=== PATIENT | female | born 1995 | race American Indian/Alaskan Native ===

== ENCOUNTER 2019-10-18 08:16 | Inpatient (IN) | payer OTHER ==
[2019-10-18] MEDS ORDERED: ONDANSETRON 4 MG/2 ML INJ IV PRN (09:33)
[2019-10-18] MEDS ORDERED: TERBUTALINE 1 MG/1 ML INJ SUB-Q PRN (09:33)
[2019-10-18] MEDS ORDERED: ePHEDrine SULFATE 50 MG/1 ML INJ IV PRN ×2 (09:33→14:29)
[2019-10-18] MEDS ORDERED: LIDOCAINE (2%) 20 MG/1 ML VIAL 20 ML MDV INFILTRATI ONE (09:33)
[2019-10-18] MEDS ORDERED: OXYTOCIN DRIP 30 UNITS/500 ML BAG IV SCH ×2 (10:00)
[2019-10-18] MEDS ORDERED: AMPICILLIN/NS 2 GM/100 ML 2 GM/100 ML BAG IV ONE (10:00)
[2019-10-18 10:24] LABS: Hemoglobin 12.8 gm/dl (10.1-14.3); Mean Corpuscular HGB Conc 33 % (30-34); Mean Corpuscular Volume 85 fl (79-97); Platelet Count 311 K/mm3 (140-440); Red Cell Distribution Width 18.3 % (13.2-15.2)
[2019-10-18] MEDS: LACTATED RINGERS 1,000 ML IV SCH ×2 (10:29→19:50)
[2019-10-18] MEDS: fentaNYL 100 MCG/2 ML INJ IV PRN ×3 (12:34→18:04)
[2019-10-18] MEDS ORDERED: NALOXONE 2 MG/2 ML INJ IV PRN (14:29)
[2019-10-18] MEDS ORDERED: DEXMEDETOMIDINE 200 MCG/2 ML VIAL IV ONE (14:37)
--- NOTE | 2019-10-18 14:58 | History and Physical Report ---
History of Present Illness Date of examination: 10/18/19 (c/o contractions) History of present illness: EDC Confirmation: 10/23/2019 Gestational Age: 17 1/7 weeks Past History : 1 Term Births: 0 Premature Births: 0 Living Children: 0 Para: 0 Mult. Births: 0 Prev : 0 Aborta: 0 Elect. Ab: 0 Spont. Ab: 0 Ectopics: 0 Past Medical History: Reviewed history and no changes required: Negative Past Medical History Past Surgical History: Reviewed history and no changes required: negative Past Medical History Anesthesia Complications: negative Anemia: negative Autoimmune Disorder: negative Bleeding Disorder: negative Blood Transfusions: negative Breast Disease: negative Diabetes: negative Heart Disease: negative Hypertension: negative Hepatitis/Liver Disease: negative Kidney Disease/UTI: negative Neurologic/Epilepsy/Migraines: negative Phlebitis/Varicosities: negative Psychiatric: negative Pulmonary Disease/Asthma: negative Thyroid Disease: negative Hospitalizations: negative Surgery (Non-docket clerk): negative Abnormal PAP: positive, PAP from February 2019 BEKAH Exposure: negative Infertility: negative Uterine Anomaly: negative Uterine Surgery (not C/S): negative Other Gynecologic Problems: negative Infection History Hx of STD: none HIV Risk Eval: low risk Hepatitis B Risk Eval: low risk Personal hx. of genital herpes: no Partner hx. of genital herpes: no Rash, Viral, or Febrile illness since last LMP? no Varicella/Chicken Pox Status: Previous Disease TB Risk: no Genetic History Congenital Heart Defect: Mom: no Dad: no Janene Disease: Mom: no Dad: no Thalassemia Mom: no Dad: no Neural Tube Defect Mom: no Dad: no Down's Syndrome Mom: no Dad: no Lon-Sachs Mom: no Dad: no Sickle Cell Disease/Trait Mom: no Dad: no Hemophilia Mom: no Dad: no Muscular Dystrophy Mom: no Dad: no Cystic Fibrosis Mom: no Dad: no [place] Chorea Mom: no Dad: no Mental Retardation Mom: no Dad: no Fragile X Mom: no Dad: no Other Genetic/Chromosomal Disorder Mom: no Dad: no Child w/other defect Mom: no Dad: no Enviromental Exposures Xray Exposure: no Medication, drug, or alcohol use since LMP: no Chemical/Other Exposure: no Exposure to Cat Liter: no Hx of Parvovirus (Fifth Disease): no Occupational Exposure to Children: none Active Medications (reviewed today): None Current Allergies (reviewed today): NKDA Past History - Obstetrical History Expected Date of Delivery: 10/23/19 Actual Gestation: 39 Week(s) 2 Day(s) : 1 Para: 0 Hx # Term Pregnancies: 0 Number of Pregnancies: 0 Spontaneous Abortions: 0 Induced : 0 Number of Living Children: 0 Medications and Allergies Allergies Allergy/AdvReac Type Severity Reaction Status Date / Time No Known Allergies Allergy Unverified 10/18/19 08:25 Home Medications Medication Instructions Recorded Confirmed Last Taken Type No Known Home Medications [No 10/18/19 10/18/19 Unknown History Reported Home Medications] Active Meds: Active Medications Ephedrine Sulfate (Ephedrine Sulfate) 10 mg IV Q2M PRN PRN Reason: Hypotension Fentanyl (Sublimaze) 100 mcg IV Q2H PRN PRN Reason: Pain,Severe (7-10) LABOR PAIN Last Admin: 10/18/19 12:34 Dose: 100 mcg Documented by: Oxytocin/Sodium Chloride (Pitocin/Ns 20 Unit/1000ml Drip) 20 units in 1,000 mls @ 125 mls/hr IV DIRECT BELLA Oxytocin/Sodium Chloride (Pitocin/Ns 30 Unit/500ml) 30 units in 500 mls @ 1 mls/hr IV TITR BELLA; Protocol Last Admin: 10/18/19 11:59 Dose: 1 milliunits/min, 1 mls/hr Documented by: Lactated Ringer's (Lactated Ringers) 1,000 mls @ 125 mls/hr IV DIRECT BELLA Last Admin: 10/18/19 10:29 Dose: 125 mls/hr Documented by: Ampicillin Sodium (Ampicillin/Ns 1 Gm/50 Ml) 1 gm in 50 mls @ 100 mls/hr IV Q4HR BELLA; Protocol Fentanyl/Bupivacaine/Sodium Chlor (Fentanyl-Bupiv 2 Mcg/Ml-0.125%) 200 mcg in 100 mls @ 12 mls/hr EPIDURAL TITR BELLA; Protocol Naloxone HCl (Naloxone) 0.2 mg IV Q5M PRN PRN Reason: Respiratory sedation Ondansetron HCl (Zofran) 4 mg IV Q8H PRN PRN Reason: Nausea And Vomiting Terbutaline Sulfate (Brethine) 0.25 mg SUB-Q ONCE PRN PRN Reason: Hyperstimulation/Hypertonicity - Vital Signs Vital signs: Vital Signs Temp Resp 98.2 F 18 06/11/20 08:33 10/18/19 08:33 Temp Pulse Resp BP Pulse Ox 98.3 F 103 H 24 161/106 98 10/18/19 10:33 10/18/19 14:56 10/18/19 10:33 10/18/19 14:56 10/18/19 14:52 - Physical Exam Breasts: Positive: deferred Cardiovascular: Regular rate, Normal S1, Normal S2 Lungs: Positive: Normal air movement Abdomen: Positive: normal appearance, soft, normal bowel sounds. Negative: distention, tenderness Genitourinary (Female): Positive: normal external genitalia Vulva: both: normal Vagina: Positive: normal moisture. Negative: discharge Cervix: Negative: lesion, discharge Uterus: Positive: normal size, normal contour Adnexa: both: normal Anus/Rectum: Positive: normal perianal skin, heme negative. Negative: rectal mass, hemorrhoids Extremities: Positive: normal Deep Tendon Reflex Grade: Normal +2 - Obstetrical FHR: category 1 Uterine Contraction Monitor Mode: External Cervical Dilatation: 4 Cervical Effacement Percentage: 90 station: -1 Uterine Contraction Pattern: Regular Uterine Tone Measurement Phase: Resting Uterine Contraction Intensity: Strong/Firm Results Result Diagrams: 10/18/19 10:00 Abnormal lab results 10/18/19 Range/Units 10:00 RDW 18.3 H (13.2-15.2) % All other labs normal. GBS POSITIVE HBsAg Screen Negative Negative *1 RPR Non Reactive Non Reactive *2 Rubella Antibodies, IgG 4.11 index Immune >0.99 *3 Non-immune <0.90 Equivocal 0.90 - 0.99 Immune >0.99 ABO Grouping O *4 Rh Factor Positive *5 Please note: Prior records for this patient's ABO / Rh type are not available for additional verification. Antibody Screen Negative Negative *6 WBC 8.5 x10E3/uL 3.4-10.8 *7 RBC 3.84 x10E6/uL 3.77-5.28 *8 Hemoglobin [L] 10.6 g/dL 11.1-15.9 *9 Hematocrit [L] 33.3 % 34.0-46.6 *10 MCV 87 fL 79-97 *11 MCH 27.6 pg 26.6-33.0 *12 MCHC 31.8 g/dL 31.5-35.7 *13 RDW 15.0 % 11.7-15.4 *14 Platelets 402 x10E3/uL 150-450 *15 Neutrophils 72 % Not Estab. *16 Lymphs 19 % Not Estab. *17 Monocytes 8 % Not Estab. *18 Eos 1 % Not Estab. *19 Basos 0 % Not Estab. *20 ! Immature Cells <No Reported Value> *21 Neutrophils (Absolute) 6.1 x10E3/uL 1.4-7.0 *22 Lymphs (Absolute) 1.6 x10E3/uL 0.7-3.1 *23 Monocytes(Absolute) 0.7 x10E3/uL 0.1-0.9 *24 Eos (Absolute) 0.1 x10E3/uL 0.0-0.4 *25 Baso (Absolute) 0.0 x10E3/uL 0.0-0.2 *26 ! Immature Granulocytes 0 % Not Estab. *27 ! Immature Grans (Abs) 0.0 x10E3/uL 0.0-0.1 *28 ! NRBC <No Reported Value> *29 Hematology Comments: <No Reported Value> *30 Tests: (2) AFP Tetra ([id number]) ! Results Report *31 ! Test Results: *Screen Negative* *32 ! Gest. Age on Collection Date 21.0 WEEKS *33 Tests: (3) HIV Ag/Ab with Reflex ([id number]) HIV Screen 4th Generation wRfx Non Reactive Non Reactive *55 Tests: (4) HCV Ab w/Rflx to Verification ([id number]) ! HCV Ab <0.1 s/co ratio 0.0-0.9 *56 Tests: (5) Comment: ([id number]) ! Comment: SPRCS *57 Non reactive HCV antibody screen is consistent with no HCV infection, unless recent infection is suspected or other evidence exists to indicate HCV infection. Tests: (6) Urine Culture, Routine ([id number]) Urine Culture, Routine Final report *58 Tests: (7) Result ([id number]) ! Result 1 MUG *59 Mixed urogenital kari 25,000-50,000 colony forming units per mL Assessment and Plan 24yo @ 39weeks in labor GBS + All orders in EMR - Patient Problems (1) Group B Streptococcus carrier state affecting Onset Date: ~10/18/19 Current Visit: Yes Status: Acute Plan to address problem: Ampicillin per protocol
[2019-10-18] MEDS ORDERED: fentaNYL-BUPIV 2 MCG/ML-0.125% 200 MCG/100 ML BAG EPIDURAL SCH (15:00)
--- NOTE | 2019-10-18 15:24 | Anesthesia Consultation ---
Anesthesia Consult and Med Hx Date of service: 10/18/19 - Airway Anesthetic Teeth Evaluation: Good ROM Head & Neck: Adequate Mental/Hyoid Distance: Adequate Mallampati Class: Class III Intubation Access Assessment: Probably Good - Pulmonary Exam CTA: No - Cardiac Exam Cardiac Exam: RRR - Pre-Operative Health Status ASA Pre-Surgery Classification: ASA3 Proposed Anesthetic Plan: Epidural - Pulmonary Hx Smoking: No Hx Asthma: No Hx Respiratory Symptoms: No SOB: No COPD: No Home Oxygen Therapy: No Hx Pneumonia: No Hx Sleep Apnea: No - Cardiovascular System Hx Hypertension: No Hx Coronary Artery Disease: No Hx Heart Attack/AMI: No Hx Angina: No Hx Percutaneous Transluminal Coronary Angioplasty (PTCA): No Hx Cardia Arrhythmia: No Hx Pacemaker: No Hx Internal Defibrillator: No Hx Valvular Heart Disease: No Hx Heart Murmur: No Hx Peripheral Vascular Disease: No - Central Nervous System Hx Neuromuscular Disorder: No Hx Seizures: No CVA: No Hx Back Pain: No Hx Psychiatric Problems: No - Gastrointestinal Hx Ulcer: No Hx Gastroesophageal Reflux Disease: Yes - Endocrine Hx Renal Disease: No Hx End Stage Renal Disease: No Hx Cirrhosis: No Hx Liver Disease: No Hx Insulin Dependent Diabetes: No Hx Non-Insulin Dependent Diabetes: No Hx Thyroid Disease: No Hx Hypothyroidism: No Hx Hyperthyroidism: No - Hematic Hx Anemia: No Hx Sickle Cell Disease: No - Other Systems Hx Alcohol Use: Yes (not during ) Hx Substance Use: No Hx Cancer: No Hx Obesity: Yes
--- NOTE | 2019-10-18 15:26 | Progress Note ---
Labor Epidural - Labor Epidural Start Time: 14:46 Stop Time: 15:02 Performed by:: ANNALEE ZHAO Procedure: Patient is requesting combined spinal epidural for labor and pain. H&P, labs were reviewed. All questions and concerns were answered. Informed consent was obtained. Timeout performed. Patient in sitting position on side of bed. Sterile prep and drape was performed. [3] mL 1% lidocaine skin wheal at L [3]-L [4]. 18-gauge Touhy epidural needle advanced to [id number] using air technique, [8cm]. 27-gauge spinal needle advanced [clear positive free- flowing] CSF. spinal dose of [Precedex 10 mcg]. Epidural catheter advanced to [12] cm. [Negative] Aspiration, [negative] test dose. Sterile dressing applied. Patient tolerated procedure well.
[2019-10-18] MEDS: AMPICILLIN/NS 1 GM/50 ML 1 GM/50 ML BAG IV SCH ×2 (15:33→18:47)
--- NOTE | 2019-10-18 17:18 | Event Note ---
Date: 10/18/19 (c/o pain and pressure) SVE done /-2, mod bloody show. Very uncomfortable with contractions. 10 L O2 applied via nonrebreather. Repositioned to sidelying. Contacting anesthesia to assess epidural
[2019-10-18] MEDS ORDERED: LIDOCAINE MPF (2%) 20 MG/1 ML VIAL 5 ML ONE (17:22)
--- NOTE | 2019-10-18 18:23 | Event Note ---
Date: 10/18/19 (c/o of pain and epidural not working) SVE /0, positioned for epidural replacement.
[2019-10-18] MEDS ORDERED: MINERAL OIL 30 ML ORAL LIQD ONE (19:48)
[2019-10-18] MEDS: OXYTOCIN 20 UNIT/1000ML DRIP 20 UNITS/1,000 ML BAG IV SCH ×2 (21:13→22:26)
[2019-10-18] MEDS ORDERED: METHYLERGONOVINE MALEATE 0.2 MG/ML VIAL IM ONE ×2 (21:17→21:41)
[2019-10-18] MEDS ORDERED: ACETAMINOPHEN 325 MG TAB PO PRN (21:42)
[2019-10-18] MEDS ORDERED: diphenhydrAMINE 25 MG CAP PO PRN (21:42)
[2019-10-18] MEDS ORDERED: MAGNESIUM HYDROXIDE (MOM) ORAL LIQD UDC PO PRN (21:42)
[2019-10-18] MEDS ORDERED: PROMETHAZINE 25 MG TAB PO PRN (21:42)
[2019-10-18] MEDS ORDERED: LANOLIN/ZINC/DIMETHICONE (LANSINOH) 7 GM TP PRN (21:42)
[2019-10-18] MEDS ORDERED: HYDROcodone/ACETAMINOPHEN 5-325 MG TAB PO PRN (21:42)
[2019-10-18] MEDS ORDERED: BENZOCAINE/MENTHOL 20/0.5% TOP SPRAY 56 GM TP PRN (21:42)
[2019-10-18] MEDS ORDERED: WITCH HAZEL/ GLYCERIN PAD TP PRN (21:42)
--- NOTE | 2019-10-18 21:53 | Procedure Note ---
OB Delivery Note - Delivery Date of Delivery: 10/18/19 Telecom Sales Consultant: VICTOR M GATICA (ANTHONY Hooper) Estimated blood loss: 500cc - Vaginal Delivery presentation: vertex Delivery position: OA Delivery induction: none Delivery augmentation: pitocin Delivery monitor: external FHT, external uterine Route of delivery: Delivery placenta: expressed Delivery cord: nuchal cord, 3 umbilical vessels Episiotomy: none Delivery laceration: 2nd degree Delivery repair: vicryl Anesthesia: epidural Delivery comments: Counts correct x's 2 live born Male over intact perineum. Baby skin to skin on moms abdomen. Cord clamped and cut. Placenta delivered complete and intact. 3 vessel cord. Pit IVFs. Methergine IM. 2nd Degree Laceration. Repaired with 3-0 vicryl in usual fashion. 8/9 Weight 7 lbs 12 oz. EBL 500 cc. Mom and baby remain in LDR stable. - A at 1 minute: 7 at 5 minutes: 9 Gender: Male (Weight 7 lbs 12 oz [facility])
[2019-10-18] MEDS: DOCUSATE SODIUM 100 MG CAP PO SCH (22:00)
[2019-10-18] MEDS: IBUPROFEN 800 MG TAB PO SCH (22:53)
[2019-10-19] MEDS: IBUPROFEN 800 MG TAB PO SCH ×3 (05:53→23:28)
[2019-10-19] MEDS ORDERED: DIPHtheria,PERTUSSIS(ACELL),TETANUS VACCINE/PF 0.5 ML VIAL IM ONE (06:00)
[2019-10-19] MEDS ORDERED: MEASLES, MUMPS & RUBELLA 12,500 UNIT/0.5 ML VACCINE SUB-Q ONE (06:00)
[2019-10-19] MEDS: DOCUSATE SODIUM 100 MG CAP PO SCH ×2 (10:51→23:28)
[2019-10-19] MEDS: PRENATAL VIT27-FE FUMARATE-FOLIC ACID VIT TAB PO SCH (10:51)
[2019-10-19 11:33] LABS: Hematocrit 33.6 % (30.3-42.9)
--- NOTE | 2019-10-19 12:50 | Progress Note ---
Assessment and Plan A: 24 y.o. s/p @ term. P: Continue with pathway. Anticipate discharge home. Subjective - Subjective Date of service: 10/19/19 Principal diagnosis: s/p @ term Patient reports: appetite normal, voiding normally, pain well controlled, flatus : doing well Objective - Vital Signs Latest vital signs: Vital Signs Temp Pulse Resp BP BP Pulse Ox 10/19/19 09:20 97.4 F L 93 H 24 132/69 95 10/19/19 06:53 18 10/19/19 06:05 98.6 F 105 H 18 127/78 96 10/19/19 05:53 18 10/19/19 05:00 98.6 F 100 H 20 127/78 96 10/19/19 03:40 18 10/19/19 02:40 18 10/18/19 23:59 98.5 F 102 H 18 148/79 99 10/18/19 23:55 77 85 10/18/19 23:33 60 85 10/18/19 23:28 102 H 98 10/18/19 23:23 110 H 97 10/18/19 23:18 114 H 97 10/18/19 23:15 106 H 148/76 10/18/19 23:13 112 H 99 10/18/19 23:08 114 H 97 10/18/19 23:03 118 H 98 10/18/19 23:00 106 H 152/99 10/18/19 22:58 102 H 97 10/18/19 22:53 97 H 18 95 10/18/19 22:48 102 H 95 10/18/19 22:45 101 H 151/73 10/18/19 22:43 107 H 97 10/18/19 22:38 104 H 97 10/18/19 22:33 105 H 95 10/18/19 22:28 109 H 96 10/18/19 22:23 105 H 97 10/18/19 22:18 115 H 97 10/18/19 22:15 105 H 143/65 10/18/19 22:13 110 H 96 10/18/19 22:08 114 H 98 10/18/19 22:03 109 H 97 10/18/19 22:01 117 H 140/75 10/18/19 21:58 115 H 96 06/11/20 21:53 115 H 97 10/18/19 21:48 119 H 97 10/18/19 21:45 114 H 109/71 10/18/19 21:43 127 H 98 10/18/19 21:39 111 H 74 L 10/18/19 21:38 128 H 99 10/18/19 21:33 130 H 99 10/18/19 21:30 98.9 F 116 H 122/59 10/18/19 21:28 129 H 100 10/18/19 21:23 122 H 99 10/18/19 21:18 123 H 100 10/18/19 21:16 129 H 147/66 10/18/19 21:13 129 H 100 10/18/19 21:08 128 H 99 10/18/19 21:03 155 H 98 10/18/19 21:01 127 H 138/93 10/18/19 20:58 134 H 98 10/18/19 20:53 125 H 98 10/18/19 20:48 122 H 99 10/18/19 20:45 173 H 167/92 87 10/18/19 20:43 112 H 98 10/18/19 20:38 111 H 99 10/18/19 20:33 106 H 100 10/18/19 20:29 104 H 144/83 10/18/19 20:28 141 H 99 10/18/19 20:23 138 H 95 10/18/19 20:18 99 H 100 10/18/19 20:16 87 193/81 10/18/19 20:13 93 H 99 10/18/19 20:08 84 99 10/18/19 20:03 92 H 100 10/18/19 20:01 85 130/78 10/18/19 19:58 88 100 10/18/19 19:53 89 100 10/18/19 19:48 107 H 97 10/18/19 19:46 102 H 125/74 10/18/19 19:43 101 H 79 L 10/18/19 19:38 110 H 96 10/18/19 19:35 112 H 84 10/18/19 19:33 106 H 100 10/18/19 19:31 110 H 129/88 10/18/19 19:28 95 H 92 10/18/19 19:23 117 H 98 10/18/19 19:18 119 H 98 10/18/19 19:16 100 H 134/65 10/18/19 19:13 89 99 10/18/19 19:08 86 97 10/18/19 19:05 98.5 F 10/18/19 19:03 111 H 98 10/18/19 19:00 100 H 120/66 10/18/19 18:58 102 H 99 10/18/19 18:55 88 110/60 10/18/19 18:53 86 100 10/18/19 18:51 102 H 118/56 10/18/19 18:48 90 99 10/18/19 18:45 104 H 118/59 10/18/19 18:43 106 H 118/58 99 10/18/19 18:41 94 H 117/57 10/18/19 18:39 113 H 113/59 10/18/19 18:38 129 H 97 10/18/19 18:37 131 H 135/60 10/18/19 18:35 131 H 142/64 10/18/19 18:34 137 H 163/86 10/18/19 18:33 144 H 96 10/18/19 18:29 131 H 165/65 10/18/19 18:28 118 H 96 10/18/19 18:27 122 H 154/75 10/18/19 18:25 125 H 157/71 10/18/19 18:23 123 H 153/66 97 10/18/19 18:21 116 H 130/60 10/18/19 18:18 129 H 97 10/18/19 18:17 118 H 146/65 10/18/19 18:15 129 H 156/90 10/18/19 18:12 129 H 145/61 95 10/18/19 18:07 128 H 96 10/18/19 18:04 127 H 139/69 10/18/19 18:02 132 H 97 10/18/19 18:01 129 H 137/64 10/18/19 17:59 113 H 149/87 10/18/19 17:57 113 H 135/61 98 10/18/19 17:55 110 H 148/86 10/18/19 17:51 117 H 152/82 10/18/19 17:48 109 H 152/73 10/18/19 17:46 114 H 151/68 10/18/19 17:45 111 H 150/75 06/11/20 17:43 118 H 159/71 10/18/19 17:42 107 H 100 10/18/19 17:40 122 H 155/81 83 L 10/18/19 17:39 109 H 153/80 10/18/19 17:37 121 H 143/68 99 10/18/19 17:34 127 H 146/67 10/18/19 17:32 128 H 99 10/18/19 17:31 129 H 158/67 10/18/19 17:29 133 H 155/90 10/18/19 17:27 138 H 100 10/18/19 17:26 125 H 153/88 10/18/19 17:22 99 H 100 10/18/19 17:17 104 H 100 10/18/19 17:12 95 H 100 10/18/19 17:07 107 H 98 10/18/19 17:02 111 H 99 10/18/19 16:57 114 H 99 10/18/19 16:52 111 H 98 10/18/19 16:47 105 H 97 10/18/19 16:42 113 H 98 10/18/19 16:37 106 H 97 10/18/19 16:32 99 H 98 10/18/19 16:27 95 H 97 10/18/19 16:22 94 H 97 10/18/19 16:17 94 H 136/68 97 10/18/19 16:12 103 H 98 10/18/19 16:07 116 H 97 10/18/19 16:02 100 H 98 10/18/19 15:57 92 H 98 10/18/19 15:52 94 H 97 10/18/19 15:47 112 H 128/71 99 10/18/19 15:42 92 H 98 10/18/19 15:37 88 98 10/18/19 15:32 89 97 10/18/19 15:27 93 H 98 10/18/19 15:23 90 107/53 10/18/19 15:22 98 H 98 10/18/19 15:17 99 H 98 10/18/19 15:12 103 H 97 10/18/19 15:08 118 H 171/97 10/18/19 15:07 111 H 177/70 98 10/18/19 15:04 105 H 179/79 10/18/19 15:02 102 H 144/86 100 10/18/19 15:00 118 H 130/88 10/18/19 14:58 104 H 155/98 10/18/19 14:57 107 H 98 10/18/19 14:56 103 H 161/106 10/18/19 14:54 103 H 160/70 10/18/19 14:52 114 H 161/69 98 10/18/19 14:50 105 H 161/74 10/18/19 14:48 113 H 157/73 10/18/19 14:47 102 H 158/84 98 10/18/19 14:46 118 H 153/87 10/18/19 14:44 102 H 144/77 10/18/19 14:42 110 H 98 10/18/19 14:38 97 H 150/83 10/18/19 14:37 102 H 98 10/18/19 14:32 109 H 97 10/18/19 14:30 107 H 141/92 Intake and Output 10/18/19 10/19/19 10/19/19 22:59 06:59 14:59 Intake Total 2050 720 Output Total 1050 300 Balance 1000 420 Intake: IV 0 AMPICILLIN/NS 1 GM/50 ML 50 1 gm In 50 ml @ 100 mls/ hr IV Q4HR BELLA Rx#: [id number] Lactated Ringers 1,000 ml 1000 @ 125 mls/hr IV DIRECT BELLA Rx#:[id number] PITOCin/NS 20 UNIT/1000ML 1000 DRIP 20 units In 1,000 ml @ 125 mls/hr IV DIRECT BELLA Rx#:[id number] Oral 240 Intake, Free Water 480 Output: Urine 1050 300 Indwelling Catheter 300 Self-Catheterization 750 Void 300 Other: Total, Intake Amount 240 Total, Output Amount 750 300 # Voids Void 1 Estimated Blood Loss 500 - Exam Breasts: Present: deferred Cardiovascular: Present: Regular rate Lungs: Present: Clear to auscultation Abdomen: Present: normal appearance, soft Vulva: both: normal Uterus: Present: normal, firm Extremities: Present: normal Deep Tendon Reflex Grade: Normal +2
--- NOTE | 2019-10-19 16:38 | Post Anesthesia Evaluation ---
- Post Anesthesia Evaluation Patient Participated: Yes Airway Patent: Yes Stable Respiratory Function: Yes Nausea/Vomiting: No Temp > 96.8F: Yes Pain Manageable: Yes Adequeate Hydration: Yes Anesthesia Complications: No Block Receding Appropriately: Yes Patient on Ventilator: No
--- NOTE | 2019-10-20 09:14 | Discharge Summary ---
Providers - Providers Date of Admission: 10/18/19 09:33 Date of discharge: 10/20/19 Attending physician: ROXANA EMERSON Primary care physician: SHALONDA KING MD Hospitalization Reason for admission: active labor Delivery: Episiotomy: none Laceration: 2nd degree Other procedures: none complications: none baby: male Hospital course: See dictated H&P. Patient was admitted underwent a normal spontaneous vaginal delivery. Her course was benign. She was afebrile throughout her stay. Her day 1 hematocrit was 33.6%. Patient is now breast-feeding and bottlefeeding and undecided about control. Condition at discharge: Good Disposition: DC-01 TO HOME OR SELFCARE - Discharge Diagnoses (1) 39 weeks gestation of Status: Acute (2) Normal spontaneous vaginal delivery Status: Acute Plan - Discharge Medications Prescriptions: Lidocain2.5%/Prilocai2.5% [Emla] 5 gm TP PRN #1 tube Ibuprofen [Motrin 800 MG tab] 800 mg PO TID PRN #30 tablet PRN Reason: Pain - Provider Discharge Summary Activity: routine, no sex for 6 weeks, no heavy lifting 4 weeks, no strenuous exercise Diet: routine Instructions: routine Additional instructions: [] Smoking cessation referral if applicable(refer to patient education folder for contact #) [] Refer to [facility]'s [facility] Booklet Call your doctor immediately for: * Fever > 100.5 * Heavy vaginal bleeding ( >1 pad per hour) * Severe persistent headache * Shortness of breath * Reddened, hot, painful area to leg or breast * Drainage or odor from incision. *Patient to call office to schedule her son's circumcision. - Follow up plan Follow up: PRIMARY CARE, [Primary Care Provider] - 7 Days Forms: [facility] Discharge Summary
[2019-10-20] MEDS: PRENATAL VIT27-FE FUMARATE-FOLIC ACID VIT TAB PO SCH (10:17)
[2019-10-20] MEDS: DOCUSATE SODIUM 100 MG CAP PO SCH (10:17)
[2019-10-20] MEDS: IBUPROFEN 800 MG TAB PO SCH (11:30)
[2019-10-20 14:07] VITALS: BP 131/74
== END 2019-10-20 14:11 | disposition home or self-care (01) | DRG 775 ==
LOC: TRG 08:16 → APU 08:16 → LD 09:33 → TRG 09:33 → LD 10:12 → OB 10-19 00:25
PROVIDERS: ADMIT Obstetrics & Gynecology; ATTEND Obstetrics & Gynecology
PROC: 10E0XZZ Delivery of Products of Conception, External Approach (ICD-10-PCS; principal; 2019-10-18)
PROC: 0KQM0ZZ Repair Perineum Muscle, Open Approach (ICD-10-PCS; 2019-10-18)
PROC: 3E0R3BZ Introduction of Anesthetic Agent into Spinal Canal, Percutaneous Approach (ICD-10-PCS; 2019-10-18)
PROC: 00HU33Z Insertion of Infusion Device into Spinal Canal, Percutaneous Approach (ICD-10-PCS; 2019-10-18)
PROC: 3E0234Z Introduction of Serum, Toxoid and Vaccine into Muscle, Percutaneous Approach (ICD-10-PCS; 2019-10-19)
PROC: 3E0134Z Introduction of Serum, Toxoid and Vaccine into Subcutaneous Tissue, Percutaneous Approach (ICD-10-PCS; 2019-10-19)
DX: O99.824 Streptococcus B carrier state complicating childbirth (principal); O69.81X0 Labor and delivery complicated by cord around neck, without compression, not applicable or unspecified; O99.62 Diseases of the digestive system complicating childbirth; K21.9 Gastro-esophageal reflux disease without esophagitis; O99.214 Obesity complicating childbirth; E66.9 Obesity, unspecified; O70.1 Second degree perineal laceration during delivery; Z37.0 Single live birth; Z3A.39 39 weeks gestation of pregnancy; Z23 Encounter for immunization
CPT/HCPCS: 36415; 59025; 85014; 85018; 85027; 86850; 86900; 86901; G0378; J0290; J2210; J2590; J3010; J3490; J7120